=== PATIENT | male | born 1980 | race Caucasian/White ===

== ENCOUNTER → 2019-04-19 | Outpatient (CLI) | payer BC, OTHER ==
--- NOTE | 2019-04-19 09:50 | 2DMMODE ---
[facility] [employer] [place] [place] [address] 2 D/M-MODE ECHOCARDIOGRAM Name: MARKUS LEVY Room [facility]: [facility] [id number] Admission: 04/19/19 Attend Phys: Addison Landeros Discharge: Date of : 84 Report #: [id number] THIS REPORT FOR: //name// APPROVED REPORT Study performed: 04/19/2019 09:04:18 EXAM: Comprehensive 2D, Doppler, and color-flow Echocardiogram Patient Location: Out-Patient Status: routine BSA: 2.29 HR: 68 bpm BP: 138/82 mmHg Rhythm: NSR Other Information Study Quality: Good Indications Irregular heart beat. HTN. 2D Dimensions RVDd: 36.06 mm IVSd: 10.31 (7-11mm) LVOT Diam: 23.55 (18-24mm) LVDd: 50.96 mm PWd: 10.16 (7-11mm) Ascending Ao: 35.02 (22-36mm) LVDs: 37.44 (25-40mm) Aortic Root: 36.53 mm Volumes Left Atrial Volume (Systole) Single Plane 4CH: 38.31 mL Single Plane 2CH: 49.99 mL LA ESV Index: 22.00 mL/m2 Aortic Valve AoV Peak Rehan.: 1.25 m/s AO Peak Gr.: 6.24 mmHg LVOT Max P.93 mmHg LVOT Max V: 0.99 m/s OSCAR Vmax: 3.45 cm2 Mitral Valve E/A Ratio: 1.5 MV Decel. Time: 186.17 ms MV E Max Rehan.: 0.90 m/s [facility] [address] [place] [address] 2 D/M-MODE ECHOCARDIOGRAM Name: MARKUS LEVY MORE Room #: REG [id number] Admission: 04/19/19 Attend Phys: Addison Landeros Discharge: Date of : 84 Report #: [id number] MV A Rehan.: 0.61 m/s MV PHT: 53.99 ms IVRT: 107.27 ms Pulmonary Valve PV Peak Rehan.: 0.96 m/s PV Peak Gr.: 3.66 mmHg Pulmonary Vein P Vein S: 0.41 m/s P Vein A: 0.27 m/s P Vein D: 0.50 m/s P Vein A Dur.: 106.1 msec P Vein S/D Ratio: 0.82 Tricuspid Valve TR Peak Rehan.: 2.07 m/s RAP Estimate: 5.00 mmHg TR Peak Gr.: 17.07 mmHg PA Pressure: 22.00 mmHg Left Ventricle The left ventricle is normal size. There is normal LV segmental wall motion. There is normal left ventricular wall thickness. Left ventricular systolic function is normal. LVEF is 55%. The left ventricular diastolic function is normal. Right Ventricle The right ventricle is normal size. The right ventricular systolic function is normal. Atria The left atrium size is normal. The right atrium size is normal. Aortic Valve The aortic valve is normal in structure. Trace aortic regurgitation. There is no aortic valvular stenosis. Mitral Valve The mitral valve is normal in structure. Trace to mild mitral regurgitation. Tricuspid Valve The tricuspid valve is normal in structure. Trace tricuspid regurgitation. Estimated PAP is 20-25mmHg. Pulmonic Valve The pulmonary valve is normal in structure. Trace pulmonic regurgitation. [facility] [address] [place] [address] 2 D/M-MODE ECHOCARDIOGRAM Name: MARKUS LEVY Room #: REG [facility] [id number] Admission: 04/19/19 Attend Phys: Addison Landeros Discharge: Date of : 84 Report #: [id number] Great Vessels The aortic root is normal in size. The ascending aorta is normal in size. IVC is normal in size and collapses >50% with inspiration. Pericardium There is no pericardial effusion. <Conclusion> The left ventricle is normal size. LVEF is 55%. The aortic valve is normal in structure. Trace aortic regurgitation. The mitral valve is normal in structure. Trace to mild mitral regurgitation. The tricuspid valve is normal in structure. Trace tricuspid regurgitation. Estimated PAP is 20-25mmHg. The pulmonary valve is normal in structure. Trace pulmonic regurgitation. There is no pericardial effusion. <ELECTRONICALLY SIGNED> By: Addison Jones MD 04/19/1948 9 9 Addison Jones MD /INF
== END ==
LOC: ULTRA 07:09
DX: I34.0 Nonrheumatic mitral (valve) insufficiency (principal); I10 Essential (primary) hypertension; R06.00 Dyspnea, unspecified; R42 Dizziness and giddiness; R10.9 Unspecified abdominal pain; Z87.891 Personal history of nicotine dependence; Z88.0 Allergy status to penicillin

== ENCOUNTER → 2019-05-24 | Outpatient (CLI) | payer BC, OTHER ==
[~2019-05-24] VITALS: Ht 177.8 cm; Wt 113.4 kg
[~2019-05-24] MED LIST: CALICUM 500+D1 EACH PO; NEURONTIN100 MG PO; PROTONIX40 M3 PO; VERAPAMIL ER120 MG PO
[2019-05-24 08:29] VITALS: BP 139/95
--- NOTE | 2019-05-24 08:43 | EKG ---
[address] [address] ELECTROCARDIOGRAM REPORT Name: MARKUS LEVY Room #: REG CLBon Godfrey#: [id number] Admission: 05/24/19 Attend Phys: Addison Jones Discharge: Date of : 84 Report #: [id number] THIS REPORT FOR: //name// [facility] Test Date: 2019-05-24 Test Time: 08:36:43 Pat Name: MARKUS LEVY Department: Room: Gender: Weights And Measures Inspector: Reena TRENT : 1980 Requested By: Addison Jones Order Number: [id number] MD: Denton Johnson Measurements Intervals [place] Rate: 79 P: 66 FL: 142 QRS: 17 QRSD: 98 T: 41 QT: 377 QTc: 433 Interpretive Statements Sinus rhythm Atrial premature complex No previous ECG available for comparison Electronically Signed On 05-24-2019 8:43:26 PERSONAL CARE WORKER by Denton Johnson [email or web address] <ELECTRONICALLY SIGNED> By: Denton Johnson MD 05/24/19 0843 [id number] Denton Johnson MD /TODD
--- NOTE | 2019-05-24 11:37 | CATHLAB ---
[facility] [address] [place] [address] INVASIVE PROCEDURE REPORT Name: MARKUS LEVY Room #: REG ARY Godfrey#: [id number] Admission: 05/24/19 Attend Phys: Addison Landeros Discharge: Date of : 84 Report #: [id number] THIS REPORT FOR: //name// APPROVED REPORT Study performed: 05/24/2019 09:22:10 Patient Details Patient Status: Out-Patient Room #: The patient is a 38 year-old male Event Personnel Addison Jones Tube Coater, Xiao Mulligan RN RN, Marilou Dunne RTR Scrub, Sanya Wang RTR Scrub, Brian Traylor, Ilene Blake RN jewelry finisher Performed Left Heart Cath w/or w/o Coronaries [id number] [facility], supervision of conscious sedation Indication Positive stress test, Chest pain Procedure Narrative The Right Groin^ was infiltrated with subcutaneous anesthesia. A PINNACLE 4FR Sheath #[id number] sheath was inserted into the RFA^. Coronary angiography was performed using coronary diagnostic catheters. The right coronary system was accessed and visualized with a JR4 catheter. The left coronary system was accessed and visualized with a JL4 catheter. The left ventricle was accessed and visualized with a PIGTAIL catheter. Left ventricular/Aortic Valve gradient assessed via catheter pullback. Hemostasis was obtained with manual pressure following sheath removal without any complications. The patient tolerated the procedure well and there were no complications associated with the procedure. There was no hematoma. Intraoperative Conscious Sedation Sedation start time: 10.10 Case end Time: 10.42 Versed 2 mg Fluoro Time: 4.40 minutes Dose: DAP 7485.00 cGycm2 1316 mGy Contrast Type and Amount: Omnipaque 60 ml [facility] [address] [place] [address] INVASIVE PROCEDURE REPORT Name: MARKUS LEVY Room #: REG [facility] [id number] Admission: 05/24/19 Attend Phys: Addison Landeros Discharge: Date of : 84 Report #: [id number] Coronary Angiography The patient's coronary anatomy is right dominant. Diagnostic Cath Left Main Large-caliber vessel of normal origin bifurcates left anterior descending left circumflex. There is a mild proximal tapering but no high-grade lesions are noted LAD Large caliber type III vessel which courses in the anterior interventricular sulcus giving rise to large first diagonal branch. He continues giving rise to septal and secondary diagonal branches for C apex and tapers rapidly from the midportion towards the apex. There is luminal irregularities noted throughout but no high-grade lesions Diagonal 1 Moderate caliber vessel coursing along the anterolateral wall of the left ventricle. The proximal third there is an eccentric 30% plaque noted which is not flow-limiting. Then continues on with out high-grade lesion only luminal irregularities Circumflex Large-caliber nondominant vessel giving rise to insignificant small first marginal branch and then continues posteriorly in the AV groove giving rise to a bifurcating lateral wall marginal. Luminal irregularities are noted but no high-grade lesions are present. The circumflex terminates as a small significant vessel in the posterior aspect of the ventricle OM1 Small insignificant vessel OM2 Moderate caliber bifurcating vessel with luminal irregularities but no high-grade lesions Right Coronary Large-caliber vessel normal origin luminal irregularities are noted throughout its entire course. It courses in the AV groove to acute margin giving rise to small RV and RA branches. And continues to the crux of the heart giving rise to moderate caliber posterior descending artery and terminates in his posterior wall with several smaller branches. No high-grade lesions are noted with only luminal irregularities are present. R PDA Moderate caliber vessel which is proximal fourth has an eccentric 30% lesion. And continues in the posterior intermittent ventricular sulcus towards the apex with only luminal irregularities and no high-grade lesions Left Ventriculography Left Ventriculography was not performed. Hemodynamics The aortic pressure is 144/107 mmHg with a mean of 91 mmHg. The left ventricular pressure is 146/15 mmHg with a mean of mmHg. The left ventricular end diastolic pressure is 20 mmHg. [facility] [address] [place] [address] INVASIVE PROCEDURE REPORT Name: CAMMARKUS MORE Room #: REG CL Dean#: [id number] Admission: 05/24/19 Attend Phys: Addison Landeros Discharge: Date of : 84 Report #: [id number] Conclusion 1. Coronary disease, minimal with luminal irregularities noted and no high-grade lesions 2. Normal hemodynamics Recommendations Cardiac Risk Reduction Program Medical Therapy <ELECTRONICALLY SIGNED> By: Addison Jones MD 05/24/19 1136 1136 113 Addison Jones MD /INF
== END | disposition home or self-care (01) ==
LOC: CATH 08:04
DX: R07.9 Chest pain, unspecified (principal); I25.10 Atherosclerotic heart disease of native coronary artery without angina pectoris; R94.39 Abnormal result of other cardiovascular function study; I10 Essential (primary) hypertension; E78.5 Hyperlipidemia, unspecified; K21.9 Gastro-esophageal reflux disease without esophagitis; E66.09 Other obesity due to excess calories; G47.33 Obstructive sleep apnea (adult) (pediatric); Z87.891 Personal history of nicotine dependence; Z98.890 Other specified postprocedural states; Z79.899 Other long term (current) drug therapy; Z88.0 Allergy status to penicillin